=== PATIENT | female | born 1940 | race Hispanic/Latino ===

== ENCOUNTER 2017-09-07 05:45 | Day surgery (SDC) | payer OTHER ==
[2017-09-06 09:51] LABS: EOSINOPHILS % (AUTO) 2.3 % (0.0-8.0); HEMATOCRIT 30.6 % (36-48); LYMPHOCYTES % (AUTO) 15.6 % (21.0-51.0); MEAN CORPUSCULAR HEMOGLOBIN 29.8 pg (27.0-33.0); MEAN CORPUSCULAR HGB CONC 33.9 g/dL (32.0-36.0); MONOCYTES % (AUTO) 10.4 % (3.0-13.0); NEUTROPHILS % (AUTO) 70.7 % (40.0-77.0); PLATELET COUNT (AUTO) 163 K/uL (130-400); RED BLOOD CELL COUNT(AUTO) 3.48 MIL/uL (4.00-5.50); RED CELL DISTRIBUTION WIDTH 16.2 % (11.0-15.5); WHITE BLOOD COUNT (AUTO) 5.3 K/uL (4.8-10.8)
[2017-09-06 09:51] LABS: APPEARANCE,URINE Clear (CLEAR); BILIRUBIN,URINE Negative (NEGATIVE); COLOR,URINE Yellow (YELLOW); GLUCOSE, URINE (UA) Negative (NEGATIVE); KETONES,URINE Negative (NEGATIVE); LEUKOCYTE ESTERASE ,URINE Negative (NEGATIVE); NITRATE,URINE Negative (NEGATIVE); OCCULT BLOOD,URINE Negative (NEGATIVE); PROTEIN,URINE Negative (NEGATIVE); UROBILINOGEN,URINE 0.2 mg/dL (0.2-1.0)
[2017-09-06 09:52] VITALS: BP 150/62
[2017-09-06 09:57] LABS: CREATININE 0.9 mg/dL (0.5-1.5); POTASSIUM 3.7 mmol/L (3.5-5.1)
[2017-09-06 10:02] LABS: INR 0.97 (0.85-1.15); PARTIAL THROMBOPLASTIN TIME 24.9 SEC (26.3-35.5); PROTHROMBIN TIME 10.2 SEC (9.6-11.6)
[~2017-09-07] VITALS: Ht 149.9 cm; Wt 44.9 kg
[2017-09-07] VITALS (11 sets, daily range): BP systolic 110–221; BP diastolic 33–68
[~2017-09-07 05:45] MED LIST: AMLO5TAB2 PO; APIX2.5T PO; DIGO125T87 PO; FURO40TA5 PO; LABE100T PO; OLME1TAB42 PO; PRAV40TA3 PO; SYMBICORT IH; VITA1CAP85 PO
[2017-09-07] MEDS ORDERED: SODIUM CHLORIDE 0.9% 1000ML 1,000 ML IV ONE (07:07)
[2017-09-07] MEDS ORDERED: MIDAZOLAM HCL 1 MG/ML 2ML VIAL ONE (07:15)
[2017-09-07] MEDS ORDERED: HEPARIN SODIUM 1000UNIT/ML 10ML VIAL ONE (07:15)
[2017-09-07] MEDS ORDERED: ISOVUE-300 100 ML VIAL IV ONE (07:15)
[2017-09-07] MEDS ORDERED: NITROGLYCERIN 5 MG/ML 10 ML VIAL IV ONE (07:15)
[2017-09-07] MEDS ORDERED: SODIUM BICARB 50MEQ 50ML VIAL ONE (07:15)
[2017-09-07] MEDS ORDERED: MEPERIDINE-PF 25 MG/ML SYG ONE (07:15)
[2017-09-07] MEDS ORDERED: SODIUM CHLORIDE 0.9% 500ML 500 ML IV SCH (08:00)
[2017-09-07] MEDS ORDERED: ASPIRIN 81MG TAB.CHEW ONE (08:51)
[2017-09-07] MEDS ORDERED: SODIUM CHLORIDE 0.9% 1000ML 1,000 ML IV SCH (08:55)
[2017-09-07] MEDS ORDERED: ACETAMINOPHEN-CODEINE 300/30MG TAB PO PRN ×2 (09:00)
[2017-09-07] MEDS ORDERED: ONDANSETRON HCL 4 MG/2 ML VIAL IVP PRN (09:00)
[2017-09-07] MEDS ORDERED: HYDRALAZINE HCL 20 MG/ML VIAL ONE (09:09)
== END 2017-09-07 15:19 | disposition home or self-care (01) ==
LOC: DAH 05:45
PROVIDERS: ATTEND Internal Medicine Cardiovascular Disease
DX: I70.1 Atherosclerosis of renal artery (principal); I15.0 Renovascular hypertension; I48.2 Chronic atrial fibrillation; Z79.01 Long term (current) use of anticoagulants; I11.0 Hypertensive heart disease with heart failure; I50.32 Chronic diastolic (congestive) heart failure; M06.9 Rheumatoid arthritis, unspecified; E78.5 Hyperlipidemia, unspecified; J45.909 Unspecified asthma, uncomplicated; Z86.010 Personal history of colon polyps; Z98.890 Other specified postprocedural states; Z79.899 Other long term (current) drug therapy
CPT/HCPCS: 36252; 36415; 37236; 71045; 80048; 81003; 85025; 85347; 85610; 85730; 93005; C1725 ×2; C1760; C1769 ×2; C1876; C1887; C1894; J0360; J1644; J3490 ×2; J7030; Q9967; J2175; J2250